=== PATIENT | female | born 1990 | race Two or more races ===

== ENCOUNTER 2016-03-17 10:49 | Emergency (ER) | payer BC ==
[2016-03-17 11:04] VITALS: BP 103/66; PULSE 90; RESP 14; TEMP 98.2; O2SAT 100
--- NOTE | 2016-03-17 11:43 | UCPHY ---
H & P Time Seen by Provider: 03/17/16 11:09 Patient Type: Established HPI/ROS: 25-year-old female presents for evaluation of possible strep throat. She has had a sore throat for 1 or 2 days. She was treated for strep throat in early February. She lives in a group setting and was very important they find out if she has strep today. Review of systems General no fever no chills no weakness HEENT no eye pain no eye discharge. No eye redness, positive mild sore throat Respiratory no cough, no shortness of breath Cardiac no chest pain, no peripheral edema GI no abdominal pain, no diarrhea, no constipation, no nausea, no vomiting no flank pain, no hematuria, no dysuria Musculoskeletal no myalgias, no joint pain Heme no easy bruising, no easy bleeding Endo no polyuria, no polydipsia Skin no rashes, no pruritus Neuro no syncope, no dizziness, no headaches Psych is no suicidal ideation, no homicidal ideation Past Medical/Surgical History: Heroin abuse Asthma Social History: Past history of heroin abuse currently in detox/rehab Smoking Status: Current every day smoker Physical Exam: Alert and oriented in no acute distress nontoxic appearance, afebrile Atraumatic normocephalic Extraocular muscles intact, anicteric Neck-supple, positive anterior cervical lymphadenopathy mildly tender to palpation Oropharynx positive enlarged tonsils, erythematous, no uvular deviation, no purulent exudate, tolerating own secretions, no trismus Lungs clear to auscultation bilaterally Heart regular rate and rhythm Abdomen normoactive bowel sounds soft nontender Extremities no cyanosis clubbing edema Skin no rash Constitutional: Initial Vital Signs Temperature (C) 36.8 C 03/17/16 10:59 Heart Rate 90 03/17/16 10:59 Respiratory Rate 14 03/17/16 10:59 Blood Pressure 103/66 03/17/16 10:59 O2 Sat (%) 100 03/17/16 10:59 O2 Delivery Mode Room Air Allergies/Adverse Reactions: horse dander Allergy (Verified 03/17/16 11:05) peanut Allergy (Verified 03/17/16 11:04) shrimp Allergy (Verified 03/17/16 11:04) Home Medications: Medication Instructions Recorded Albuterol Sulfate 03/17/16 Medical Decision Making ED Course/Re-evaluation: Patient seen for sore throat prior history of strep Now also with cold symptoms Rapid strep negative Impression Acute pharyngitis Plan We will wait for DNA culture No empiric treatment likely viral - Data Points Laboratory Results: 03/17/16 03/17/16 Unknown 11:15 Group A Strep Screen NEGATIVE (NEGATIVE) Group A Strep DNA Pending Departure - Departure Disposition: Home, Routine, Self-Care Clinical Impression: Acute pharyngitis Condition: Good Instructions: Pharyngitis (ED) Referrals: NONE *PRIMARY CARE P,. [Primary Care Provider] - As per Instructions - PQRS PQRS Measurement: na
== END 2016-03-17 11:52 | disposition home or self-care (01) ==
LOC: CED 10:49
DX: J02.9 Acute pharyngitis, unspecified (principal); F11.21 Opioid dependence, in remission; F17.210 Nicotine dependence, cigarettes, uncomplicated
CPT/HCPCS: 87880-PO; 99214-PO; G0463-PO